=== PATIENT | male | born 1975 | race American Indian/Alaskan Native ===

== ENCOUNTER 2019-03-17 22:16 | Emergency (ER) | payer BC ==
[2019-03-17 22:21] VITALS: BP 126/71
[2019-03-18] MEDS ORDERED: IBUPROFEN 800 MG TAB PO ONE (03:23)
--- NOTE | 2019-03-18 04:59 | Emergency Department Report ---
- General Chief Complaint: Upper Respiratory Infection Stated Complaint: FLU BODY ACHE AND WEAK Time Seen by Provider: 03/18/19 02:44 Source: patient Mode of arrival: Ambulatory Limitations: No Limitations - History of Present Illness Initial Comments: Mr. Bryant is a 43-year-old -[place] male. Denies medical history. Presents with flulike symptoms. Symptoms include cough bodyaches ,chills, sore throat. Symptoms are exacerbated by viral exposure. Symptoms are relieved by nothing tried.. History several contacts positive for flu. Patient denies MAXIMUM TEMPERATURE temp is 108.1 in triage today. MD Complaint: fever, cough, sore throat, rhinorrhea, nasal congestion Onset/Timin -: days(s) Severity: moderate Severity scale (0 -10): 5 Quality: aching Consistency: constant Improves With: nothing Worsens With: activity Context: sick contacts Associated Symptoms: fever, chills, myalgias, headache, rhinorrhea, nasal congestion, sore throat, cough. denies: shortness of breath, nausea (3), vomiting Treatments Prior to Arrival: none - Related Data Previous Rx's Medication Instructions Recorded Last Taken Type Guaifenesin/Pseudoephedrne HCl 1 each PO BID PRN 10 Days #24 03/18/19 Unknown Rx [Mucinex D ER 1,200-120 mg Tab] tab.er.12h Ibuprofen [Motrin 800 MG tab] 800 mg PO Q8HR PRN #30 tablet 03/18/19 Unknown Rx Allergies Allergy/AdvReac Type Severity Reaction Status Date / Time No Known Allergies Allergy Verified 03/17/19 22:20 ED Review of Systems ROS: Stated complaint: FLU BODY ACHE AND WEAK Other details as noted in HPI Constitutional: chills, fever Eyes: denies: eye pain, eye discharge, vision change ENT: ear pain, throat pain, congestion. denies: dental pain, hearing loss, epistaxis Respiratory: denies: cough, shortness of breath, wheezing Cardiovascular: denies: chest pain, palpitations Endocrine: no symptoms reported Gastrointestinal: denies: abdominal pain, nausea, vomiting, diarrhea, constipation Genitourinary: denies: urgency, dysuria Musculoskeletal: denies: back pain, joint swelling, arthralgia Skin: denies: rash, lesions Neurological: denies: headache, weakness, numbness, paresthesias, confusion, vertigo Psychiatric: denies: anxiety, depression Hematological/Lymphatic: denies: easy bleeding, easy bruising ED Past Medical Hx - Past Medical History Previous Medical History?: No - Surgical History Past Surgical History?: No - Social History Smoking Status: Former Smoker - Medications Home Medications: Home Medications Medication Instructions Recorded Confirmed Last Taken Type Guaifenesin/Pseudoephedrne HCl 1 each PO BID PRN 10 Days #24 03/18/19 Unknown Rx [Mucinex D ER 1,200-120 mg Tab] tab.er.12h Ibuprofen [Motrin 800 MG tab] 800 mg PO Q8HR PRN #30 tablet 03/18/19 Unknown Rx ED Physical Exam - General Limitations: No Limitations (also) General appearance: alert, in no apparent distress - Head Head exam: Present: atraumatic, normocephalic - Eye Eye exam: Present: normal appearance, EOMI Pupils: Present: normal accommodation - ENT ENT exam: Present: normal orophraynx, mucous membranes moist, TM's normal bilaterally, normal external ear exam - Expanded ENT Exam Expanded Ear exam: Present: normal external inspection Mouth exam: Present: normal external inspection Teeth exam: Present: normal inspection Throat exam: Positive: normal inspection, tonsillar erythema, tonsillomegaly. Negative: tonsillar exudate, R peritonsillar mass, L peritonsillar mass - Neck Neck exam: Present: normal inspection, full ROM. Absent: tenderness, meningismus, lymphadenopathy, thyromegaly - Respiratory Respiratory exam: Present: normal lung sounds bilaterally, wheezes. Absent: respiratory distress, rales, rhonchi, stridor, chest wall tenderness - Cardiovascular Cardiovascular Exam: Present: regular rate, normal rhythm. Absent: systolic murmur, diastolic murmur, rubs, gallop - GI/Abdominal GI/Abdominal exam: Present: soft, normal bowel sounds. Absent: distended, tenderness, guarding, rebound, rigid, bruit, hernia - Rectal Rectal exam: Present: deferred, normal inspection, normal rectal tone, decreased rectal tone - Extremities Exam Extremities exam: Present: normal inspection, full ROM, normal capillary refill. Absent: tenderness - Back Exam Back exam: Present: normal inspection. Absent: full ROM, muscle spasm, paraspinal tenderness - Neurological Exam Neurological exam: Present: alert, oriented X3, CN II-XII intact, normal gait, reflexes normal. Absent: motor sensory deficit - Psychiatric Psychiatric exam: Present: normal affect, normal mood - Skin Skin exam: Present: warm, dry, intact, normal color. Absent: rash ED Course Vital Signs 03/17/19 22:20 Temperature 100.8 F H Pulse Rate 85 Respiratory 18 Rate Blood Pressure 126/71 O2 Sat by Pulse 97 Oximetry ED Medical Decision Making - Medical Decision Making This an URI,viral syndrome paln, mucinex, ibuprofen , continue to hydrate Critical care attestation.: If time is entered above; I have spent that time in minutes in the direct care of this critically ill patient, excluding procedure time. ED Disposition Clinical Impression: Flu URI (upper respiratory infection) Qualifiers: URI type: unspecified URI Qualified Code(s): J06.9 - Acute upper respiratory infection, unspecified Disposition: - TO HOME OR SELFCARE Is pt being admited?: No Does the pt Need Aspirin: No Condition: Stable Instructions: Influenza (ED), Upper Respiratory Infection (ED) Prescriptions: Ibuprofen [Motrin 800 MG tab] 800 mg PO Q8HR PRN #30 tablet PRN Reason: pain fever Guaifenesin/Pseudoephedrne HCl [Mucinex D ER 1,200-120 mg Tab] 1 each PO BID PRN 10 Days #24 tab.er.12h PRN Reason: Congestion Referrals: [facility] [Outside] - 3-5 Days Forms: Work/School Release Form(ED) Time of Disposition: 05:20
== END 2019-03-18 05:31 | disposition home or self-care (01) ==
LOC: ED 22:16
DX: J11.1 Influenza due to unidentified influenza virus with other respiratory manifestations (principal); J06.9 Acute upper respiratory infection, unspecified; Z87.891 Personal history of nicotine dependence
CPT/HCPCS: 99282